=== PATIENT | male | born 1975 | race Hispanic/Latino ===

== ENCOUNTER → 2019-07-19 | Outpatient (CLI) | payer OTHER | END | disposition home or self-care (01) | LOC: RAH 13:14 | PROVIDERS: ATTEND Family Medicine | DX: R94.6 Abnormal results of thyroid function studies (principal) | CPT/HCPCS: 71046; 76536 ==

== ENCOUNTER 2019-09-08 09:35 | Emergency (ER) | payer OTHER, MEDICARE ==
[2019-09-08] MEDS ORDERED: KETOROLAC TROMETHAMINE 60 MG/2 ML VIAL ONE (11:48)
== END 2019-09-08 11:57 | disposition home or self-care (01) ==
LOC: EDH 09:35
DX: G89.29 Other chronic pain (principal); M54.5 Low back pain; E11.9 Type 2 diabetes mellitus without complications; I10 Essential (primary) hypertension; F31.9 Bipolar disorder, unspecified; M79.7 Fibromyalgia; Z21 Asymptomatic human immunodeficiency virus [HIV] infection status; Z88.0 Allergy status to penicillin; Z88.8 Allergy status to other drugs, medicaments and biological substances
CPT/HCPCS: 96372; 99283; J1885

== ENCOUNTER 2020-08-22 09:30 | Emergency (ER) | payer OTHER, MEDICARE ==
[~2020-08-22] VITALS: Ht 172.7 cm; Wt 140.6 kg
[2020-08-22 09:59] VITALS: BP 131/64
[2020-08-22] MEDS ORDERED: NAPR-1180 PO (12:21)
== END 2020-08-22 12:37 | disposition home or self-care (01) ==
LOC: EDH 09:30
DX: S10.11XA Abrasion of throat, initial encounter (principal); X58.XXXA Exposure to other specified factors, initial encounter; E11.9 Type 2 diabetes mellitus without complications; I10 Essential (primary) hypertension; E66.9 Obesity, unspecified; Z68.42 Body mass index [BMI] 45.0-49.9, adult; Z21 Asymptomatic human immunodeficiency virus [HIV] infection status; F32.9 Major depressive disorder, single episode, unspecified; Y93.89 Activity, other specified; Y92.89 Other specified places as the place of occurrence of the external cause; Y99.8 Other external cause status
CPT/HCPCS: 70360

== ENCOUNTER 2023-01-17 13:51 | Emergency (ER) | payer OTHER, MEDICARE ==
[~2023-01-17] VITALS: Ht 172.7 cm; Wt 107.5 kg
[~2023-01-17 13:51] MED LIST: NAPR-1180 PO
[2023-01-17 14:32] VITALS: O2SAT 98
[2023-01-17 14:33] VITALS: BP 181/95; PULSE 115; RESP 18
[2023-01-17 14:58] LABS: HEMATOCRIT 48.2 % (42-54); MEAN CORPUSCULAR HEMOGLOBIN 27.9 pg (27.0-33.0); MEAN CORPUSCULAR VOLUME 87.5 fL (79-99); RED BLOOD CELL COUNT(AUTO) 5.51 MIL/uL (4.50-6.20); RED CELL DISTRIBUTION WIDTH 13.5 % (11.0-15.5); WHITE BLOOD COUNT (AUTO) 9.8 K/uL (4.8-10.8)
[2023-01-17 15:12] LABS: POTASSIUM 3.7 mmol/L (3.5-5.1)
== END 2023-01-17 15:54 | disposition left against medical advice (07) ==
LOC: EDH 13:51
DX: R03.0 Elevated blood-pressure reading, without diagnosis of hypertension (principal); Z53.21 Procedure and treatment not carried out due to patient leaving prior to being seen by health care provider
CPT/HCPCS: 36415; 80048; 85027; 99281